=== PATIENT | male | born 1980 | race Caucasian/White ===

== ENCOUNTER → 2017-07-24 | Outpatient (CLI) | payer BC | END | disposition home or self-care (01) | LOC: C.LAB 10:13 | PROVIDERS: ATTEND Family Medicine | DX: Z83.2 Family history of diseases of the blood and blood-forming organs and certain disorders involving the immune mechanism (principal) ==

== ENCOUNTER → 2017-10-02 | Outpatient (CLI) | payer OTHER ==
--- NOTE | 2017-10-02 10:24 | DIAGNOSTIC IMAGING REPORT ---
ULTRASOUND TESTES AND SCROTUM CLINICAL HISTORY: Chronic right testicular pain. Penile lesion. COMPARISON STUDY: No priors. TECHNIQUE: Real-time, grayscale, and color Doppler sonography of the testes and scrotum is performed. Images are reviewed in the transverse and longitudinal planes. FINDINGS: The testes are normal in size and homogeneous in echotexture. The right testis measures 6.2 x 2.8 x 3.4 cm and the left testis measures 5.6 x 2.4 x 3.6 cm. No intratesticular mass is seen. Testicular blood flow is normal and symmetric. Normal Doppler waveforms are identified in both testes. The epididymal heads are normal in appearance. The right epididymal head measures 1.3 cm in length and the left epididymal head measures 1.1 cm in length. No varicocele or hydrocele is seen. IMPRESSION: Unremarkable sonographic assessment of the testes and scrotum. Electronically signed by: Leonard Singh M.D. 10/02/2017 10:23 AM Dictated Date/Time: 10/02/2017 10:22 AM
== END | disposition home or self-care (01) ==
LOC: C.ULTRBC 09:45
PROVIDERS: ATTEND Urology
DX: N48.9 Disorder of penis, unspecified (principal)

== ENCOUNTER 2023-01-21 15:20 | Observation (INO) ==
--- NOTE | 2023-01-21 15:24 | ED Triage Note ---
Date of Service January 21, 2023 History of Present Illness This patient was briefly evaluated while in triage. An abbreviated physical exam was performed. This patient is a 42-year-old Male who presents to the ED for evaluation of RLQ abdominal pain, started around dinner last evening. Seen by Dr. Souza and had CT. sent over from CT + for appendicitis last PO 1030 Physical Exam GENERAL: NAD CARDIOVASCULAR: RRR RESPIRATORY: CTA ABDOMEN: BS x 4. TTP RLQ Initial orders for labs and / or imaging were placed and patient was placed in the waiting area until a bed is available. Please see further documentation for the full ED course.
[2023-01-21] MEDS ORDERED: cefTRIAXone SODIUM 1,000 MG in DEXTROSE 5% AD-VAN 50 ML IV STA (15:43)
[2023-01-21] MEDS ORDERED: metroNIDAZOLE 500 MG/100 ML BAG IV STA (15:43)
[2023-01-21 16:07] LABS: Basophils # (auto) 0.02 K/uL (0-0.2); Basophils % (auto) 0.4 %; Eosinophils # (auto) 0.03 K/uL (0-0.50); Eosinophils % (auto) 0.6 %; Hematocrit (blood only) 45.6 % (42.0-52.0); Hemoglobin 16.5 g/dl (14.0-18.0); Immature Granulocytes # (auto) 0.02 K/uL (0.01-0.20); Immature Granulocytes % (auto) 0.4 %; Lymphocytes # (auto) 1.04 K/uL (1.2-3.4); Lymphocytes % (auto) 19.3 %; Mean Corpuscular Hgb Conc 36.2 g/dL (32.0-36.0); Mean Corpuscular Volume 85.7 fL (80.0-100.0); Mean Platelet Volume 10.9 fL (9.4-12.4); Monocytes # (auto) 0.35 K/uL (0.11-0.59); Monocytes % (auto) 6.5 %; Neutrophils # (auto) 3.94 K/uL (1.40-6.50); Neutrophils % (auto) 72.8 %; Platelet Count 210 K/uL (130-400); RDW Coefficient of Variation 12.1 % (11.5-14.5); RDW Standard Deviation 37.8 fL (36.4-46.3); Red Blood Count 5.32 M/uL (4.70-6.10)
--- NOTE | 2023-01-21 16:17 | Emergency Department Note ---
History of Present Illness General Chief Complaint: Flank Pain Stated Complaint: APENDICITIS Time Seen by Provider: 01/21/23 15:42 History of Present Illness Provider Complaint: abdominal pain Onset (ago): 1 day(s) Pain Consistency: intermittent Location: RLQ Severity: mild Maximum Pain Intensity: 2 Current Pain Intensity: 2 Quality: + stabbing and + sharp Relieved By: + nothing Exacerbated By: + nothing Context: no foreign travel, no possible food poisoning, no sick contacts, no recent antibiotic use, no recent surgery/procedure or no recent injury Associated Symptoms: no nausea, no vomiting, no diarrhea, no fever, no chills, no constipation, no dysuria, no hematemesis, no hematochezia, no melena and no hematuria Home Medications Medication Instructions Recorded Confirmed Type esomeprazole magnesium 20 mg 20 mg PO DAILY 07/28/19 01/21/23 History capsule,delayed release (Nexium) loratadine 10 mg tablet (Claritin) 10 mg PO DAILY 07/28/19 01/21/23 History albuterol sulfate 90 mcg/actuation 1 inh inhalation QID PRN Wheezing 10/14/22 01/21/23 History aerosol inhaler multivitamin 1 tab PO DAILY 01/21/23 01/21/23 History Allergies Allergy/AdvReac Type Severity Reaction Status Date / Time promethazine Allergy Intermediate hives Verified 01/21/23 16:55 Sulfa (Sulfonamide Allergy Intermediate hives Verified 01/21/23 16:55 Antibiotics) Past Med/Surg History Medical History Acquired von Willebrand's disease Type 1 Anal fissure Asthma Environmental allergies Epididymitis GERD (gastroesophageal reflux disease) History of COVID-19 08/26/2022 (home test)- fever, chills, body aches, sinus pressure > resolved except occasional mild cough Palpitations occasional (following 2nd Covid vaccine) SLAP tear of shoulder Right Surgical History Anal skin tag excised [place] teeth extracted Family History Father Diabetes Hypertension Heart disease Mother Breast cancer Social History Smoking Status: Never smoker Second Hand Exposure: No; Do You Dip or Chew Tobacco: No; Hx Alcohol Use: Yes Alcohol type: beer, wine and hard liquor Hx Substance Use: No Preferred Language: Belarusian Communication Ability: Effective Corking Machine Operator Required: No Beliefs That Will Affect Care: None marital status: Current Living Situation: Spouse and Family 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 Safe at Home: Yes Assistive Devices: Glasses Physical Exam Vital Signs: Vital Signs - 24 hr 01/21/23 15:23 01/21/23 16:39 01/21/23 16:40 Temperature 36.5 C Temperature Source Temporal Artery Sc an Pulse Rate 90 63 66 Respiratory Rate 20 13 15 Respiratory Effort / Characteristics Non-Labored Respiratory Depth Normal Blood Pressure 156/109 H Blood Pressure Sarah n 124 Pulse Oximetry 99 Oxygen Delivery Me thod Room Air Sepsis Recent Feve r Within 48 Hours No Sepsis New/Unexpla ined Change in Men diaz Status N/A Sepsis Action Take n by Nursing No Action Required 01/21/23 16:38 01/21/23 16:50 01/21/23 17:00 Temperature Temperature Source Pulse Rate 68 62 Respiratory Rate 13 Respiratory Effort / Characteristics Respiratory Depth Blood Pressure 152/96 H Blood Pressure Sarah n 114 Pulse Oximetry Oxygen Delivery Me thod Sepsis Recent Feve r Within 48 Hours Sepsis New/Unexpla ined Change in Men diaz Status Sepsis Action Take n by Nursing 01/21/23 17:00 01/21/23 17:10 01/21/23 17:20 Temperature Temperature Source Pulse Rate 68 68 62 Respiratory Rate 21 17 13 Respiratory Effort / Characteristics Respiratory Depth Blood Pressure Blood Pressure Sarah n Pulse Oximetry Oxygen Delivery Me thod Sepsis Recent Feve r Within 48 Hours Sepsis New/Unexpla ined Change in Men diaz Status Sepsis Action Take n by Nursing 01/21/23 17:30 01/21/23 17:30 01/21/23 17:40 Temperature Temperature Source Pulse Rate 55 L 62 Respiratory Rate 15 17 Respiratory Effort / Characteristics Respiratory Depth Blood Pressure 133/94 Blood Pressure Sarah n 107 Pulse Oximetry Oxygen Delivery Me thod Sepsis Recent Feve r Within 48 Hours Sepsis New/Unexpla ined Change in Men diaz Status Sepsis Action Take n by Nursing Physical Exam: Physical Exam GENERAL: oriented to person, place, and time. appears well-developed and well- nourished. HENT: Exam performed. - Head: Normocephalic and atraumatic. EYES: Conjunctivae and EOM are normal. Right eye exhibits no discharge. Left eye exhibits no discharge. No scleral icterus. NECK: Normal range of motion. Neck supple. No JVD present. CV: Normal rate, regular rhythm, normal heart sounds and intact distal pulses. There is no peripheral edema. Palpable radial pulses bue. PULM/CHEST: Effort normal and breath sounds normal. No respiratory distress. No stridor. no wheezes. no rales. ABD: The abdomen is soft. There is tenderness to palpation of the right lower quadrant with rebound tenderness. Rovsing negative. NEURO: Motor and sensation grossly intact. SKIN: Skin is warm and dry. He is not diaphoretic. PSYCH: normal mood and affect. Behavior is normal. Judgment and thought content normal. Course Course 1542: The patient was evaluated in room A12. A complete history and physical exam was performed Cardiac monitoring: An order was placed for continuous cardiac monitoring. The monitor shows a rate of 90 with sinus rhythm interpreted by me 1624: Spoke with Dr. Dominguez general surgery who states he will be down to eval uate the patient. He recommends we spoke with Dr. Villalpando about given the patient desmopressin. 1643: I contacted Dr. Villalpando who recommended the following: Dr. Dominguez surgery will be made aware 20 mcg IV 90- minutes prior to surgery - check BMP, BP, PTT 30-45 minutes later and make sure PTT normalizes to indicate good response Repeat 20 mcg at 12 hours then 20 mcg daily up to 3 days (we can follow for subsequent doses) Contact us if there is any concerns over unusual bleeding postoperatively in which case we will reassess for Humate-P Dr. Dominguez surgery will be made aware Administered Medications Discontinued Medications Ceftriaxone Sodium 1,000 mg/ (Dextrose) 50 mls @ 100 mls/hr IV NOW STA Stop: 01/21/23 16:12 Last Infusion: 01/21/23 17:35 Dose: 0 mls/hr Documented By: Admin: 01/21/23 17:00 Dose: 100 mls/hr Documented By: RANULFO Metronidazole (Flagyl) 500 mg in 100 mls @ 100 mls/hr IV NOW STA Stop: 01/21/23 16:42 Last Infusion: 01/21/23 17:35 Dose: 0 mls/hr Documented By: Admin: 01/21/23 16:08 Dose: 100 mls/hr Documented By: RANULFO Medical Decision Making Medical Records Attestation: I reviewed the patient's medical records. External medical records reviewed. CT of the abdomen pelvis conducted outpatient today showed that the appendix borderline distended 7 mm with periappendiceal fat stranding concerning for early acute appendicitis. Laboratory Data Attestation: I reviewed the patient's lab results. 01/21/23 15:50 01/21/23 15:50 Lab Results 01/21/23 01/21/23 01/21/23 Range/Units 15:50 15:50 15:50 WBC 5.40 (4.8-10.8) K/ul RBC 5.32 (4.70-6.10) M/uL Hgb 16.5 (14.0-18.0) g/dl Hct 45.6 (42.0-52.0) % MCV 85.7 (80.0-100.0) fL MCH 31.0 (25.0-34.0) pg MCHC 36.2 H (32.0-36.0) g/dL RDW Std Deviation 37.8 (36.4-46.3) fL RDW Coeff of Erickson 12.1 (11.5-14.5) % Plt Count 210 (130-400) K/uL MPV 10.9 (9.4-12.4) fL Immature Gran % (Auto) 0.4 % Neut % (Auto) 72.8 % Lymph % (Auto) 19.3 % Callaway % (Auto) 6.5 % Eos % (Auto) 0.6 % Baso % (Auto) 0.4 % Neut # (Auto) 3.94 (1.40-6.50) K/uL Lymph # (Auto) 1.04 L (1.2-3.4) K/uL [place] # (Auto) 0.35 (0.11-0.59) K/uL Eos # (Auto) 0.03 (0-0.50) K/uL Baso # (Auto) 0.02 (0-0.2) K/uL Immature Gran # (Auto) 0.02 (0.01-0.20) K/uL PT 11.2 (9.0-12.0) Seconds INR 1.0 (0.9-1.1) Sodium 136 (136-145) mmol/L Potassium 3.8 (3.5-5.1) mmol/L Chloride 102 (98-107) mmol/L Carbon Dioxide 25 (21-32) mmol/L Anion Gap 9 (3-11) BUN 11 (6-23) mg/dl Creatinine 1.02 (0.6-1.4) mg/dl Est Cr Clr Drug Dosing 100.5 ml/min Est GFR ( Amer) 104.6 ml/min Est GFR (Non-Af Amer) 90.2 ml/min BUN/Creatinine Ratio 10.8 (10-20) Glucose 121 H (70-99(Fasting)) mg/dl Calcium 10.2 (8.6-10.3) mg/dl Total Bilirubin 0.8 (0.2-1.0) mg/dl AST 24 (13-39) U/L ALT 42 (7-52) U/L Alkaline Phosphatase 58 (34-104) U/L Total Protein 8.1 (6.0-8.3) gm/dl Albumin 4.8 (3.4-5.0) gm/dl Globulin 3.3 (2.5-4.0) gm/dl Albumin/Globulin Ratio 1.5 (0.9-2) SARS-CoV-2, RNA, NAAT (NEGATIVE) 01/21/23 Range/Units 15:55 WBC (4.8-10.8) K/ul RBC (4.70-6.10) M/uL Hgb (14.0-18.0) g/dl Hct (42.0-52.0) % MCV (80.0-100.0) fL MCH (25.0-34.0) pg MCHC (32.0-36.0) g/dL RDW Std Deviation (36.4-46.3) fL RDW Coeff of Erickson (11.5-14.5) % Plt Count (130-400) K/uL MPV (9.4-12.4) fL Immature Gran % (Auto) % Neut % (Auto) % Lymph % (Auto) % Call[place] % (Auto) % Eos % (Auto) % Baso % (Auto) % Neut # (Auto) (1.40-6.50) K/uL Lymph # (Auto) (1.2-3.4) K/uL [place] # (Auto) (0.11-0.59) K/uL Eos # (Auto) (0-0.50) K/uL Baso # (Auto) (0-0.2) K/uL Immature Gran # (Auto) (0.01-0.20) K/uL PT (9.0-12.0) Seconds INR (0.9-1.1) Sodium (136-145) mmol/L Potassium (3.5-5.1) mmol/L Chloride (98-107) mmol/L Carbon Dioxide (21-32) mmol/L Anion Gap (3-11) BUN (6-23) mg/dl Creatinine (0.6-1.4) mg/dl Est Cr Clr Drug Dosing ml/min Est GFR ( Amer) ml/min Est GFR (Non-Af Amer) ml/min BUN/Creatinine Ratio (10-20) Glucose (70-99(Fasting)) mg/dl Calcium (8.6-10.3) mg/dl Total Bilirubin (0.2-1.0) mg/dl AST (13-39) U/L ALT (7-52) U/L Alkaline Phosphatase (34-104) U/L Total Protein (6.0-8.3) gm/dl Albumin (3.4-5.0) gm/dl Globulin (2.5-4.0) gm/dl Albumin/Globulin Ratio (0.9-2) SARS-CoV-2, RNA, NAAT NEGATIVE (NEGATIVE) [facility] Narrative 1542: The patient was evaluated in room A12. A complete history and physical exam was performed Cardiac monitoring: An order was placed for continuous cardiac monitoring. The monitor shows a rate of 90 with sinus rhythm interpreted by me 1624: Spoke with Dr. Dominguez general surgery who states he will be down to evaluate the patient. He recommends we spoke with Dr. Villalpando about given the pa tient desmopressin. 1643: I contacted Dr. Villalpando who recommended the following: Dr. Dominguez surgery will be made aware 20 mcg IV 90- minutes prior to surgery - check BMP, BP, PTT 30-45 minutes later and make sure PTT normalizes to indicate good response Repeat 20 mcg at 12 hours then 20 mcg daily up to 3 days (we can follow for subsequent doses) Contact us if there is any concerns over unusual bleeding postoperatively in which case we will reassess for Marvin Dominguez surgery will be made aware Impression & Plan Acute appendicitis Discharge Plan Visit Data Chief Complaint: Flank Pain Stated Complaint: APENDICITIS ED Provider: Bernard Snider Discharge Problem: Acute appendicitis Patient Disposition: Admitted As Inpatient Forms Stand Alone Forms: [facility] Prescriptions Prescriptions: No Action esomeprazole magnesium [Nexium] 20 mg capsule,delayed release(DR/EC) 20 mg PO DAILY loratadine [Claritin] 10 mg tablet 10 mg PO DAILY multivitamin Tablet 1 tab PO DAILY albuterol sulfate 90 mcg/actuation Hfa Aerosol Inhaler 1 inh INHALATION QID PRN (Reason: Wheezing) Referrals Referrals: Pedro Souza [Primary Care Provider] -
[2023-01-21 16:18] LABS: Prothrombin Time 11.2 Seconds (9.0-12.0)
[2023-01-21 16:21] LABS: Albumin Level 4.8 gm/dl (3.4-5.0); Bilirubin,Total 0.8 mg/dl (0.2-1.0); Calcium 10.2 mg/dl (8.6-10.3); Potassium 3.8 mmol/L (3.5-5.1)
[2023-01-21 16:27] LABS: Albumin Globulin Ratio 1.5 (0.9-2); BUN Creatinine Ratio 10.8 (10-20); Creatinine Clr Calc Pharmacy 100.5 ml/min; Est GFR (African American) 104.6 ml/min; Est GFR (Non-African American) 90.2 ml/min; Globulin 3.3 gm/dl (2.5-4.0); Total Protein 8.1 gm/dl (6.0-8.3)
--- NOTE | 2023-01-21 17:34 | History & Physical Report ---
Date of Service January 21, 2023 Assessment & Plan (1) Acute appendicitis: (2) Von willebrand disease, type 1: Plan 42 yo male with onset of sharp abdominal pain in RLQ last evening with generalized lower abdominal tenderness, CT scan showing early acute appendicitis with no evidence of perforation or abscess. NO leukocytosis, afebrile and no chills. Has history of type 1 von willebrand disease. Plan: Dr. Dominguez and I discussed with patient imaging and laboratory findings consi stent with early acute appendicitis. Given no leukocytosis, fever, or chills and the Von Willebrand's disease discussed options of antibiotics and medical management vs surgery with laparoscopic appendectomy. Discussed procedure and associated risks and expected recovery. Dr. Snider in ER briefly discussed with Dr. Ennis and there is indicated protocol preoperatively for the von Willebrand's which would involve premedication 90 minutes before surgery and rechecking labs including PTT. After discussion and examination, will plan for observation and antibiotics and repeat labs in morning. Will determine if surgery needed in morning. Will consult Dr. Loli Dominguez has seen and examined pt, please see addendum for further recommendations/plan. History of Present Illness Chief Complaint: Right lower abdominal pain Primary Care Provider: Pedro Lee Libby Stephen is a 42 year-old male who presented to emergency department from outpatient PCP office due to sudden onset of RLQ abdominal pain last evening around 5:30 pm with associated gas and bloating. States he had sudden sharp pain in RLQ and then dull aching pain in lower abdomen bilaterally. Jackson constipated last evening and this morning. Denies of similar sharp severe pain in past. Denies fever or chills. Had outpatient CT scan with contrast which showed early acute appendicitis. States he is feeling well and pain is minimal and only about 2/10. Has not taken any pain medication. Has history of Type 1 Von Willebrand disease. Follows with Dr. Ennis. Had vasectomy about 2 months ago without significant bleeding issues. Was premedicated with desmopressin 2 days prior to procedure. Allergies Allergy/AdvReac Type Severity Reaction Status Date / Time promethazine Allergy Intermediate hives Verified 01/21/23 16:55 Sulfa (Sulfonamide Allergy Intermediate hives Verified 01/21/23 16:55 Antibiotics) Home Medications Medication Instructions Recorded Confirmed Type esomeprazole magnesium 20 mg 20 mg PO DAILY 07/28/19 01/21/23 History capsule,delayed release (Nexium) loratadine 10 mg tablet (Claritin) 10 mg PO DAILY 07/28/19 01/21/23 History albuterol sulfate 90 mcg/actuation 1 inh inhalation QID PRN Wheezing 10/14/22 01/21/23 History aerosol inhaler multivitamin 1 tab PO DAILY 01/21/23 01/21/23 History Past Med/Surg History Medical History Acquired von Willebrand's disease Type 1 Anal fissure Asthma Environmental allergies Epididymitis GERD (gastroesophageal reflux disease) History of COVID-19 08/26/2022 (home test)- fever, chills, body aches, sinus pressure > resolved except occasional mild cough Palpitations occasional (following 2nd Covid vaccine) SLAP tear of shoulder Right Surgical History Anal skin tag excised [place] teeth extracted Family History Father Diabetes Hypertension Heart disease Mother Breast cancer Social History Smoking Status: Former smoker Second Hand Exposure: No; Do You Dip or Chew Tobacco: No; Hx Alcohol Use: Yes Alcohol type: beer, wine and hard liquor Hx Substance Use: No Preferred Language: Jamaican Communication Ability: Effective Spring Assembler Required: No Beliefs That Will Affect Care: None marital status: Current Living Situation: Spouse Current Living Situation Comment: Lives at home with and children 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 Safe at Home: Yes Safety Concerns: Feels Safe At This Time Assistive Devices: Glasses Review of Systems Review of Systems: All systems reviewed & are unremarkable except as noted in HPI & below Physical Exam Constitutional: WD/WN, vitals as above cooperative and comfortable; no acute distress and not ill appearing Respiratory: normal respiratory effort, lungs clear to auscultation Cardiovascular: RRR, no murmur, no edema Gastrointestinal (Abdomen): Inspection/Auscultation: abdomen normal to inspection and + hypoactive bowel sounds; abdomen not distended, + abnormal bowel sounds and no abdominal surgical scar Percussion/Palpation: + abdomen tender (Right mid lateral abdomen on deep palpation) and abdomen soft; no guarding and abdomen not rigid negative McBurney point Skin: no rashes, warm and dry Psychiatric: A+Ox3, euthymic affect Results & Data Results & Data Vital Signs (Past 12 Hours) Vital Signs Temp Pulse Resp BP Pulse Ox O2 Del Method 01/21/23 16:38 68 01/21/23 16:40 66 15 01/21/23 16:39 63 13 01/21/23 15:23 36.5 C 90 20 156/109 H 99 Room Air Laboratory Results 01/21/23 01/21/23 01/21/23 Range/Units 15:55 15:50 15:50 WBC (4.8-10.8) K/ul RBC (4.70-6.10) M/uL Hgb (14.0-18.0) g/dl Hct (42.0-52.0) % MCV (80.0-100.0) fL MCH (25.0-34.0) pg MCHC (32.0-36.0) g/dL RDW Std Deviation (36.4-46.3) fL RDW Coeff of Erickson (11.5-14.5) % Plt Count (130-400) K/uL MPV (9.4-12.4) fL Immature Gran % (Auto) % Neut % (Auto) % Lymph % (Auto) % [place]monson % (Auto) % Eos % (Auto) % Baso % (Auto) % Neut # (Auto) (1.40-6.50) K/uL Lymph # (Auto) (1.2-3.4) K/uL [place]monson # (Auto) (0.11-0.59) K/uL Eos # (Auto) (0-0.50) K/uL Baso # (Auto) (0-0.2) K/uL Immature Gran # (Auto) (0.01-0.20) K/uL PT 11.2 (9.0-12.0) Seconds INR 1.0 (0.9-1.1) Sodium 136 (136-145) mmol/L Potassium 3.8 (3.5-5.1) mmol/L Chloride 102 (98-107) mmol/L Carbon Dioxide 25 (21-32) mmol/L Anion Gap 9 (3-11) BUN 11 (6-23) mg/dl Creatinine 1.02 (0.6-1.4) mg/dl Est Cr Clr Drug Dosing 100.5 ml/min Est GFR ( Amer) 104.6 ml/min Est GFR (Non-Af Amer) 90.2 ml/min BUN/Creatinine Ratio 10.8 (10-20) Glucose 121 H (70-99(Fasting)) mg/dl Calcium 10.2 (8.6-10.3) mg/dl Total Bilirubin 0.8 (0.2-1.0) mg/dl AST 24 (13-39) U/L ALT 42 (7-52) U/L Alkaline Phosphatase 58 (34-104) U/L Total Protein 8.1 (6.0-8.3) gm/dl Albumin 4.8 (3.4-5.0) gm/dl Globulin 3.3 (2.5-4.0) gm/dl Albumin/Globulin Ratio 1.5 (0.9-2) SARS-CoV-2, RNA, NAAT NEGATIVE (NEGATIVE) 01/21/23 Range/Units 15:50 WBC 5.40 (4.8-10.8) K/ul RBC 5.32 (4.70-6.10) M/uL Hgb 16.5 (14.0-18.0) g/dl Hct 45.6 (42.0-52.0) % MCV 85.7 (80.0-100.0) fL MCH 31.0 (25.0-34.0) pg MCHC 36.2 H (32.0-36.0) g/dL RDW Std Deviation 37.8 (36.4-46.3) fL RDW Coeff of Erickson 12.1 (11.5-14.5) % Plt Count 210 (130-400) K/uL MPV 10.9 (9.4-12.4) fL Immature Gran % (Auto) 0.4 % Neut % (Auto) 72.8 % Lymph % (Auto) 19.3 % Edmonson % (Auto) 6.5 % Eos % (Auto) 0.6 % Baso % (Auto) 0.4 % Neut # (Auto) 3.94 (1.40-6.50) K/uL Lymph # (Auto) 1.04 L (1.2-3.4) K/uL Edmonson # (Auto) 0.35 (0.11-0.59) K/uL Eos # (Auto) 0.03 (0-0.50) K/uL Baso # (Auto) 0.02 (0-0.2) K/uL Immature Gran # (Auto) 0.02 (0.01-0.20) K/uL PT (9.0-12.0) Seconds INR (0.9-1.1) Sodium (136-145) mmol/L Potassium (3.5-5.1) mmol/L Chloride (98-107) mmol/L Carbon Dioxide (21-32) mmol/L Anion Gap (3-11) BUN (6-23) mg/dl Creatinine (0.6-1.4) mg/dl Est Cr Clr Drug Dosing ml/min Est GFR ( Amer) ml/min Est GFR (Non-Af Amer) ml/min BUN/Creatinine Ratio (10-20) Glucose (70-99(Fasting)) mg/dl Calcium (8.6-10.3) mg/dl Total Bilirubin (0.2-1.0) mg/dl AST (13-39) U/L ALT (7-52) U/L Alkaline Phosphatase (34-104) U/L Total Protein (6.0-8.3) gm/dl Albumin (3.4-5.0) gm/dl Globulin (2.5-4.0) gm/dl Albumin/Globulin Ratio (0.9-2) SARS-CoV-2, RNA, NAAT (NEGATIVE) Diagnostic Findings ABDOMEN AND PELVIS CT WITH IV AND ORAL CONTRAST CT DOSE: 1090.72 mGy.cm HISTORY: R/O APPY,RLQ PAIN TECHNIQUE: Multiaxial CT images of the abdomen and pelvis were performed following the use of intravenous and oral contrast. A dose lowering technique was utilized adhering to the principles of ALARA. COMPARISON STUDY: None. FINDINGS: The appendix is borderline distended at 7 mm. However, there is minimal periappendiceal fat stranding. Therefore, these findings are concerning for an early acute appendicitis. No perforation or abscess identified. The lung bases are clear. No pneumoperitoneum. No pneumatosis. No acute fractures identified. The liver, gallbladder, spleen, pancreas, adrenal glands, and kidneys are unremarkable. No ureteral stones or hydronephrosis. The main portal vein is patent. Normal caliber abdominal aorta. No retroperitoneal or pelvic lymphadenopathy. No pelvic free fluid. Normal bladder. No dilated loops of bowel to suggest an obstruction. There are few colonic diverticula. No evidence for acute diverticulitis. IMPRESSION: The appendix is borderline distended at 7 mm. However, there is minimal periappendiceal fat stranding. Therefore, these findings are concerning for an early acute appendicitis. Surgical consultation recommended. Code Status & VTE Plan VTE Prophylaxis Plan VTE Prophylaxis will be ordered: Yes Supervising Physician Co-Signing Physician Notes I have seen and examined the patient personally and agree with the above assessment plan. We long discussion concerning the appendicitis as well as his von Willebrand's disease. I carefully detailed the options of antibiotic therapy versus surgical treatment of the appendicitis. Given his white count, lack of fever, lack of inflammatory changes of the appendix, he meets criteria for antibiotic treatment as primary treatment for appendicitis. We will place him in the hospital on antibiotics and revisit the plan in the morning. We will reach out to Dr. Villalpando for guidance on infusion therapy if he does choose to undergo surgery.
[2023-01-21] MEDS ORDERED: ALBUTEROL HFA 8 GM INHALER INH PRN (20:24)
[2023-01-21] MEDS ORDERED: PROMETHAZINE HCL 12.5 MG in SODIUM CHLORIDE 0.9% 50 ML IV PRN (20:24)
[2023-01-21] MEDS ORDERED: ONDANSETRON INJ 2 MG/ML 2 ML VIAL IV PRN (20:24)
[2023-01-21] MEDS ORDERED: MoRPHine SULFATE 2 MG/ML CARP IV PRN (20:24)
[2023-01-21] MEDS ORDERED: diphenhydrAMINE Capsule 25 MG CAP PO PRN (20:24)
[2023-01-21] MEDS ORDERED: KETOROLAC 30 MG/ML VIAL IV PRN (20:24)
[2023-01-21] MEDS ORDERED: PIPERACILLIN/TAZOBACTAM 4.5 GM/120 ML BAG IV ONE (21:00)
[2023-01-21] MEDS: LACTATED RINGER'S 1,000 ML IV SCH (21:48)
[2023-01-22] MEDS: PIPERACILLIN/TAZOBACTAM 4.5 GM in DEXTROSE 5% 100 ML IV SCH ×3 (01:06→18:16)
[2023-01-22 01:35] LABS: Appearance Urine Clear (Clear); Bacteria Urine Automated Negative (Negative); Bilirubin Urine Negative (Negative); Blood Urine Negative (Negative); Cast Urine Automated 0 /lpf (0-5); Color Urine Dark Yellow; Epithelial Cell Urine Auto 0-5 /lpf (0-5); Glucose Urine UA Negative (Negative); Ketones Urine Trace (Negative); Leukocyte Esterase Urine Negative (Negative); Nitrite Urine Negative (Negative); Protein Urine Trace (Negative); RBC Urine Automated 0-4 /hpf (0-4); Specific Gravity Urine > 1.045 (1.000-1.030); Urobilinogen Urine Negative (Negative); WBC Urine Automated 0 /hpf (0-5)
--- NOTE | 2023-01-22 06:17 | Consultation ---
Date of Consultation January 22, 2023 Assessment & Plan (1) Von willebrand disease, type 1: With baseline von Willebrand's factors above 30%, he actually has a more "mild" variant but for optimal safety for intra-abdominal surgery we should probably use von Willebrand factor concentrates rather than DDAVP with the latter less predictable in its effect and also complicating issues of blood pressure and electrolyte management. If he is to go to surgery, would >> Administer Humate-P 3600 ristocetin cofactor units (40 units/kg) intravenously approximately 60 to 90 minutes preoperatively. Would need to draw "peak" Factor VIII and von Willebrand's factor antigen levels as well as a STAT PTT 30 minutes after the infusion. The first 2 results will not be immediately available but the PTT should be normal before proceeding to surgery. >> Postoperatively would recheck "trough" PTT, factor VIII and von Willebrand factor antigen levels 11 hours post the first infusion >> Continue with a dose of 1800 units at 12 hours post the first infusion then another 1800 unit dose 12 hours after that up until 36 hours post-op potentially converting to every 24 hours thereafter depending on peak and trough levels >> Continue Humate-P for at least 4 days then reassess, could potentially convert to DDAVP thereafter to facilitate discharge but that will need to be in shared decision-making with the patient. We are not necessarily well structured to be able to give Humate-P as an outpatient but we can explore. Classic recommendation would be for 7 days of coverage for "major surgery" With each day of continued Humate-P administration would need to draw "trough" levels 30 to 60 minutes prior to then "peak" levels of von Willebrand's factor antigen, factor VIII, and PTT 30 minutes after the morning infusion. 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 To lessen thrombosis risk would try to keep peak levels below 180-200 Ironically, there is the issue of thrombosis risk. Dania " evidencebased many review: Perioperative management of the VWD patient at elevated thrombotic risk" Hematology Am Soc Hematol Educ Program. https://www.ncbi.nlm.nih.gov/pmc/articles/FET2693705/# 2018Jul 29 2019(1): 484092. doi:10.1182/hematology.[id number] htt ps://doi.org/10.1182%2Fhematology.4744209579 review that issue and conclude that standard antithrombotic prophylaxis is worthwhile in the high risk patient. Would certainly continue with early ambulation and mechanical DVT prophylaxis. If it is felt that the surgical situation warrants pharmacologic prophylaxis so long as he is on the Humate-P and hospitalized could consider standard p rophylaxis but might use prophylactic dose subcutaneous heparin for facilitated reversal if necessary (2) Acute appendicitis: As per surgery Plan 1. Would use Humate-P for the immediate management perioperatively with dosing and lab monitoring as detailed above 2. Early ambulation and mechanical DVT prophylaxis would be critical. If you feel that there is a significant benefit to low-dose pharmacologic heparin prophylaxis for a "standard" patient in this circumstance would incorporate that here so long as he is on therapeutic Humate-P though do so with very close observation for any signs of bleeding 3. We will need to continue Humate-P and laboratory monitoring for 4 days as above, thereafter can have shared decision-making with the patient about converting to DDAVP History of Present Illness Reason for Consultation: Patient with history of symptomatic type I von Willebrand's disease admitted with early appendicitis with concerns over possible need for perioperative management of his hemostasis Attending Physician: Andres Dominguez MD History of Present Illness Patient with type I von Willebrand's disease, baseline von Willebrand factor activity 32%, von Willebrand factor antigen 36% but with normal factor VIII activity at 94%. He has never had life-threatening bleeding and is usually managed reasonably well with DDAVP. He presents now with low right flank pain and signs of a early acute appendicitis. He has had no recent major bleeding issues and is not having any other major complications with this. No other major medical issues complicating his presentation. We do note there is a family history of von Willebrand's and his mother Allergies Allergy/AdvReac Type Severity Reaction Status Date / Time promethazine Allergy Intermediate hives Verified 01/21/23 16:55 Sulfa (Sulfonamide Allergy Intermediate hives Verified 01/21/23 16:55 Antibiotics) Home Medications Medication Instructions Recorded Confirmed Type esomeprazole magnesium 20 mg 20 mg PO DAILY 07/28/19 01/21/23 History capsule,delayed release (Nexium) loratadine 10 mg tablet (Claritin) 10 mg PO DAILY 07/28/19 01/21/23 History albuterol sulfate 90 mcg/actuation 1 inh inhalation QID PRN Wheezing 10/14/22 01/21/23 History aerosol inhaler multivitamin 1 tab PO DAILY 01/21/23 01/21/23 History Patient History Medical History Acquired von Willebrand's disease Type 1 Anal fissure Asthma Environmental allergies Epididymitis GERD (gastroesophageal reflux disease) History of COVID-19 08/26/2022 (home test)- fever, chills, body aches, sinus pressure > resolved except occasional mild cough Palpitations occasional (following 2nd Covid vaccine) SLAP tear of shoulder Right Surgical History Anal skin tag excised [place] teeth extracted Family History Father Diabetes Hypertension Heart disease Mother Breast cancer Social History Smoking Status: Former smoker Second Hand Exposure: No; Do You Dip or Chew Tobacco: No; Hx Alcohol Use: Yes Alcohol type: beer, wine and hard liquor Hx Substance Use: No Preferred Language: Kazakh Communication Ability: Effective 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 He has no scleral or skin icterus. No peripheral pathologic adenopathy. Lungs are clear, cardiac exam exam is stable. His abdomen is soft and he does not have dramatic tenderness with no rigidity or guarding in the right lower quadrant. There is more vague tenderness in the lower right flank but this is not dramatic Extremities are symmetric without compression tenderness or signs of DVT Results & Data Vital Signs (Past 12 Hours) Vital Signs Temp Pulse Pulse Resp BP BP Pulse Ox 01/21/23 20:46 36.7 C 62 16 134/87 100 01/21/23 20:30 68 23 136/87 05/31/23 20:00 52 L 16 137/85 100 01/21/23 19:30 57 L 20 144/86 H 99 01/21/23 19:00 51 L 19 130/87 01/21/23 18:46 59 L 19 125/85 01/21/23 18:40 58 L 27 H 01/21/23 18:30 51 L 17 01/21/23 18:20 51 L 20 O2 Del Method 01/21/23 20:46 Room Air 01/21/23 20:30 01/21/23 20:00 01/21/23 19:30 01/21/23 19:00 01/21/23 18:46 01/21/23 18:40 01/21/23 18:30 01/21/23 18:20 Laboratory Results Laboratory Results - last 24 hr 01/21/23 01/21/23 01/21/23 15:50 15:50 15:50 WBC 5.40 RBC 5.32 Hgb 16.5 Hct 45.6 MCV 85.7 MCH 31.0 MCHC 36.2 H RDW Std Deviation 37.8 RDW Coeff of Erickson 12.1 Plt Count 210 MPV 10.9 Immature Gran % (Auto) 0.4 Neut % (Auto) 72.8 Lymph % (Auto) 19.3 [place] % (Auto) 6.5 Eos % (Auto) 0.6 Baso % (Auto) 0.4 Neut # (Auto) 3.94 Lymph # (Auto) 1.04 L [place] # (Auto) 0.35 Eos # (Auto) 0.03 Baso # (Auto) 0.02 Immature Gran # (Auto) 0.02 PT 11.2 INR 1.0 Sodium 136 Potassium 3.8 Chloride 102 Carbon Dioxide 25 Anion Gap 9 BUN 11 Creatinine 1.02 Est Cr Clr Drug Dosing 100.5 Est GFR ( Amer) 104.6 Est GFR (Non-Af Amer) 90.2 BUN/Creatinine Ratio 10.8 Glucose 121 H Calcium 10.2 Total Bilirubin 0.8 AST 24 ALT 42 Alkaline Phosphatase 58 Total Protein 8.1 Albumin 4.8 Globulin 3.3 Albumin/Globulin Ratio 1.5 Urine Color Urine Appearance Urine pH Ur Specific [place] Urine Protein Urine Glucose (UA) Urine Ketones Urine Blood Urine Nitrite Urine Bilirubin Urine Urobilinogen Ur Leukocyte Esterase Urine WBC (Auto) Urine RBC (Auto) U Hyaline Cast (Auto) U Epithel Cells (Auto) Urine Bacteria (Auto) SARS-CoV-2, RNA, NAAT 01/21/23 01/22/23 15:55 01:10 WBC RBC Hgb Hct MCV MCH MCHC RDW Std Deviation RDW Coeff of Erickson Plt Count MPV Immature Gran % (Auto) Neut % (Auto) Lymph % (Auto) [place] % (Auto) Eos % (Auto) Baso % (Auto) Neut # (Auto) Lymph # (Auto) [place] # (Auto) Eos # (Auto) Baso # (Auto) Immature Gran # (Auto) PT INR Sodium Potassium Chloride Carbon Dioxide Anion Gap BUN Creatinine Est Cr Clr Drug Dosing Est GFR ( Amer) Est GFR (Non-Af Amer) BUN/Creatinine Ratio Glucose Calcium Total Bilirubin AST ALT Alkaline Phosphatase Total Protein Albumin Globulin Albumin/Globulin Ratio Urine Color Dark Yellow Urine Appearance Clear Urine pH 7.0 Ur Specific [place] > 1.045 H Urine Protein Trace H Urine Glucose (UA) Negative Urine Ketones Trace H Urine Blood Negative Urine Nitrite Negative Urine Bilirubin Negative Urine Urobilinogen Negative Ur Leukocyte Esterase Negative Urine WBC (Auto) 0 Urine RBC (Auto) 0-4 U Hyaline Cast (Auto) 0 U Epithel Cells (Auto) 0-5 Urine Bacteria (Auto) Negative SARS-CoV-2, RNA, NAAT NEGATIVE Diagnostic Findings 01/21/[address] FINDINGS: The appendix is borderline distended at 7 mm. However, there is minimal periappendiceal fat stranding. Therefore, these findings are concerning for an early acute appendicitis. No perforation or abscess identified. The lung bases are clear. No pneumoperitoneum. No pneumatosis. No acute fractures identified. The liver, gallbladder, spleen, pancreas, adrenal glands, and kidneys are unremarkable. No ureteral stones or hydronephrosis. The main portal vein is patent. Normal caliber abdominal aorta. No retroperitoneal or pelvic lymphadenopathy. No pelvic free fluid. Normal bladder. No dilated loops of bowel to suggest an obstruction. There are few colonic diverticula. No evidence for acute diverticulitis. IMPRESSION: The appendix is borderline distended at 7 mm. However, there is minimal periappendiceal fat stranding. Therefore, these findings are concerning for an early acute appendicitis. Surgical consultation recommended. PG Care Time/CCT Total # of Minutes Spent Total Time Spent with Patient: Total time spent is greater than 50% in coordination of care (as documented) at patient's floor/unit and/or counseling patient: Coding Level of Care Code 26826 IN/OBS CONSULT LVL 4,60M Diagnoses Von willebrand disease, type 1 D68.01 Acute appendicitis K35.80 Acute appendicitis type: unspecified acute appendicitis type (2) Acute appendicitis Acute appendicitis type: unspecified acute appendicitis type Qualified Code(s): K35.80 - Unspecified acute appendicitis
--- NOTE | 2023-01-22 07:11 | Anesthesiology Consultation ---
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 Surgery Operation Date: 01/22/23 08:35 Proposed Procedures p Laparoscopic Appendectomy - Andres Dominguez MD Height/Weight Height: 5 ft 11 in Weight: 87.543 kg Allergies Allergy/AdvReac Type Severity Reaction Status Date / Time promethazine Allergy Intermediate hives Verified 01/21/23 16:55 Sulfa (Sulfonamide Allergy Intermediate hives Verified 01/21/23 16:55 Antibiotics) Medications Home Medications Medication Instructions Recorded Confirmed Last Taken esomeprazole magnesium 20 mg 20 mg PO DAILY 07/28/19 01/21/23 01/20/23 capsule,delayed release (Nexium) loratadine 10 mg tablet (Claritin) 10 mg PO DAILY 07/28/19 01/21/23 01/21/23 albuterol sulfate 90 mcg/actuation 1 inh inhalation QID PRN Wheezing 10/14/22 01/21/23 Unknown aerosol inhaler multivitamin 1 tab PO DAILY 01/21/23 01/21/23 01/21/23 Active Medications Generic Name Dose Route Start Last Admin Trade Name Freq PRN Reason Stop Dose Admin Lactated Ringer's 1,000 mls @ 75 mls/hr 01/21/23 20:24 01/21/23 21:48 Lr IV 02/20/23 20:23 75 mls/hr .[id number] DANIAL Administration Piperacillin Sod/Tazobactam 120 mls @ 30 mls/hr 01/22/23 02:00 01/22/23 05:11 Sod 4.5 gm/ Dextrose IV 02/01/23 01:59 Infused Q8H DANIAL Infusion Protocol Past Medical History Medical History Acquired von Willebrand's disease Type 1 Anal fissure Asthma Environmental allergies Epididymitis GERD (gastroesophageal reflux disease) History of COVID-19 08/26/2022 (home test)- fever, chills, body aches, sinus pressure > resolved except occasional mild cough Palpitations occasional (following 2nd Covid vaccine) SLAP tear of shoulder Right Past Family History Family History Father Diabetes Hypertension Heart disease Mother Breast cancer Past Surgical History Surgical History (Reviewed 01/22/23 @ 07:10 by AURELIO Burgess Anal skin tag excised [place] teeth extracted Social History Smoking Status: Former smoker Do You Dip or Chew Tobacco: No Hx Alcohol Use: Yes Alcohol type: beer, wine and hard liquor alcohol intake frequency: holidays/special occasions only Hx Substance Use: No substance use type: does not use Physical Exam Vital Signs Last Vital Signs Temp 98.1 F 01/21/23 20:46 Pulse 62 01/21/23 20:46 Resp 16 01/21/23 20:46 BP 134/87 01/21/23 20:46 Pulse Ox 100 01/21/23 20:46 O2 Del Method Room Air 01/21/23 20:46 Testing Laboratory Results 01/21/23 15:50 01/21/23 15:50 PT 11.2 Seconds (9.0-12.0) 01/21/23 15:50 INR 1.0 (0.9-1.1) 01/21/23 15:50 Urine Color Dark Yellow 01/22/23 01:10 Urine Appearance Clear (Clear) 01/22/23 01:10 Urine pH 7.0 (4.5-7.5) 01/22/23 01:10 Ur Specific [place] > 1.045 (1.000-1.030) H 01/22/23 01:10 Urine Protein Trace (Negative) H 01/22/23 01:10 Urine Glucose (UA) Negative (Negative) 01/22/23 01:10 Urine Ketones Trace (Negative) H 01/22/23 01:10 Urine Nitrite Negative (Negative) 01/22/23 01:10 Ur Leukocyte Esterase Negative (Negative) 01/22/23 01:10 Urine WBC (Auto) 0 /hpf (0-5) 01/22/23 01:10 Urine RBC (Auto) 0-4 /hpf (0-4) 01/22/23 01:10 U Hyaline Cast (Auto) 0 /lpf (0-5) 01/22/23 01:10 U Epithel Cells (Auto) 0-5 /lpf (0-5) 01/22/23 01:10 Urine Bacteria (Auto) Negative (Negative) 01/22/23 01:10
[2023-01-22] MEDS ORDERED: PROPOFOL IV EMULSION 10 MG/ML 20 ML VIAL IV ONE ×2 (08:37→16:20)
[2023-01-22] MEDS ORDERED: LIDOCAINE 2% 2 ML VIAL/AMP(20MG/ML) INFIL ONE (08:37)
[2023-01-22] MEDS ORDERED: fentaNYL citrate PF 100 MCG/2 ML VIAL ONE ×2 (08:37→16:04)
[2023-01-22] MEDS ORDERED: DEXAMETHASONE SOD INJ 4 MG/ML VIAL ONE (08:37)
[2023-01-22] MEDS ORDERED: MIDAZOLAM HCL 1 MG/ML 2ML VIAL ONE (08:37)
[2023-01-22] MEDS ORDERED: ONDANSETRON INJ 2 MG/ML 2 ML VIAL ONE (08:37)
[2023-01-22] MEDS ORDERED: ROCURONIUM BROMIDE 10 MG/ML 5 ML VIAL IV ONE (08:37)
[2023-01-22 08:38] LABS: Basophils # (auto) 0.03 K/uL (0-0.2); Basophils % (auto) 0.5 %; Eosinophils # (auto) 0.12 K/uL (0-0.50); Eosinophils % (auto) 1.9 %; Hematocrit (blood only) 44.8 % (42.0-52.0); Hemoglobin 15.7 g/dl (14.0-18.0); Immature Granulocytes # (auto) 0.02 K/uL (0.01-0.20); Immature Granulocytes % (auto) 0.3 %; Lymphocytes # (auto) 1.18 K/uL (1.2-3.4); Lymphocytes % (auto) 18.9 %; Mean Corpuscular Volume 88.4 fL (80.0-100.0); Mean Platelet Volume 11.2 fL (9.4-12.4); Monocytes # (auto) 0.55 K/uL (0.11-0.59); Monocytes % (auto) 8.8 %; Neutrophils # (auto) 4.34 K/uL (1.40-6.50); Neutrophils % (auto) 69.6 %; Platelet Count 190 K/uL (130-400); RDW Coefficient of Variation 12.4 % (11.5-14.5); RDW Standard Deviation 39.4 fL (36.4-46.3); Red Blood Count 5.07 M/uL (4.70-6.10); White Blood Count 6.24 K/ul (4.8-10.8)
[2023-01-22] MEDS: PANTOprazole 40 MG TAB PO SCH (09:00)
[2023-01-22] MEDS: LORATADINE 10 MG TAB PO SCH (09:00)
[2023-01-22 09:09] LABS: BUN Creatinine Ratio 10.3 (10-20); Calcium 9.3 mg/dl (8.6-10.3); Creatinine Clr Calc Pharmacy 81.3 ml/min; Est GFR (Non-African American) 69.9 ml/min; Potassium 3.6 mmol/L (3.5-5.1)
[2023-01-22] MEDS ORDERED: FACTOR 8/HUMATE-P/ADVATE ONE ×2 (10:54→13:23)
[2023-01-22] MEDS ORDERED: [UNRECOGNIZED DRUG - MIXTURE] IV SCH (11:15)
--- NOTE | 2023-01-22 11:16 | Surgery Progress Note ---
Date of Service January 22, 2023 Assessment & Plan (1) Acute appendicitis: (2) Von willebrand disease, type 1: Plan 42 yo male with onset of sharp abdominal pain in RLQ Thursday evening with generalized lower abdominal tenderness, CT scan showing early acute appendicitis with no evidence of perforation or abscess. NO leukocytosis, afebrile and no chills. Has history of type 1 von Willebrand disease. Plan: Discussed options of (1) laparoscopic appendectomy now vs (2) Antibiotic m anagement with total of 7-10 days of oral antibiotics and close follow-up vs (3) antibiotics now vs interval appendectomy. After discussion with Dr. Dominguez and the risks associated with all options he would like to proceed with laparoscopic appendectomy. will proceed with Dr. Ennis's premedication protocol keep NPO will obtain consent preoperatively Dr. Dominguez has seen and discussed above options with patient, see addendum for further recommendations/plan. Admission and Anticipated Discharge Date Admission Date: January 21, 2023 Supervising Physician Co-Signing Physician Notes I have seen and examined the patient personally and agree with the above assessment and plan. We had a long discussion this morning about his options. He would like to proceed with surgical therapy. We discussed with Dr. Soares and have a plan for infusion therapy for the von Willebrand's. We will put this into action. We will take him to the operating room in the afternoon for laparoscopic appendectomy. Subjective feeling good, no pain no fevers or chills no n,v having loose stools and abdominal cramping and gas pains are improved Physical Exam Constitutional: WD/WN, vitals as above no acute distress and not ill appearing Respiratory: normal respiratory effort; no respiratory distress Gastrointestinal (Abdomen): Inspection/Auscultation: abdomen normal to inspection and + hypoactive bowel sounds; abdomen not distended and + abnormal bowel sounds Percussion/Palpation: abdomen soft; abdomen nontender, no guarding and abdomen not rigid Skin: no rashes, warm and dry Psychiatric: A+Ox3, euthymic affect Results & Data Vital Signs (Past 12 Hours) Vital Signs Temp Pulse Resp BP Pulse Ox O2 Del Method 01/22/23 07:37 36.9 C 68 16 139/88 99 Room Air Laboratory Results 01/22/23 01/22/23 01/22/23 Range/Units 07:57 07:57 01:10 WBC 6.24 (4.8-10.8) K/ul RBC 5.07 (4.70-6.10) M/uL Hgb 15.7 (14.0-18.0) g/dl Hct 44.8 (42.0-52.0) % MCV 88.4 (80.0-100.0) fL MCH 31.0 (25.0-34.0) pg MCHC 35.0 (32.0-36.0) g/dL RDW Std Deviation 39.4 (36.4-46.3) fL RDW Coeff of Erickson 12.4 (11.5-14.5) % Plt Count 190 (130-400) K/uL MPV 11.2 (9.4-12.4) fL Immature Gran % (Auto) 0.3 % Neut % (Auto) 69.6 % Lymph % (Auto) 18.9 % [place] % (Auto) 8.8 % Eos % (Auto) 1.9 % Baso % (Auto) 0.5 % Neut # (Auto) 4.34 (1.40-6.50) K/uL Lymph # (Auto) 1.18 L (1.2-3.4) K/uL [place] # (Auto) 0.55 (0.11-0.59) K/uL Eos # (Auto) 0.12 (0-0.50) K/uL Baso # (Auto) 0.03 (0-0.2) K/uL Immature Gran # (Auto) 0.02 (0.01-0.20) K/uL PT (9.0-12.0) Seconds INR (0.9-1.1) Sodium 139 (136-145) mmol/L Potassium 3.6 (3.5-5.1) mmol/L Chloride 102 (98-107) mmol/L Carbon Dioxide 30 (21-32) mmol/L Anion Gap 7 (3-11) BUN 13 (6-23) mg/dl Creatinine 1.26 (0.6-1.4) mg/dl Est Cr Clr Drug Dosing 81.3 ml/min Est GFR ( Amer) 81.0 ml/min Est GFR (Non-Af Amer) 69.9 ml/min BUN/Creatinine Ratio 10.3 (10-20) Glucose 103 H (70-99(Fasting)) mg/dl Calcium 9.3 (8.6-10.3) mg/dl Total Bilirubin (0.2-1.0) mg/dl AST (13-39) U/L ALT (7-52) U/L Alkaline Phosphatase (34-104) U/L Total Protein (6.0-8.3) gm/dl Albumin (3.4-5.0) gm/dl Globulin (2.5-4.0) gm/dl Albumin/Globulin Ratio (0.9-2) Urine Color Dark Yellow Urine Appearance Clear (Clear) Urine pH 7.0 (4.5-7.5) Ur Specific [place] > 1.045 H (1.000-1.030) Urine Protein Trace H (Negative) Urine Glucose (UA) Negative (Negative) Urine Ketones Trace H (Negative) Urine Blood Negative (Negative) Urine Nitrite Negative (Negative) Urine Bilirubin Negative (Negative) Urine Urobilinogen Negative (Negative) Ur Leukocyte Esterase Negative (Negative) Urine WBC (Auto) 0 (0-5) /hpf Urine RBC (Auto) 0-4 (0-4) /hpf U Hyaline Cast (Auto) 0 (0-5) /lpf U Epithel Cells (Auto) 0-5 (0-5) /lpf Urine Bacteria (Auto) Negative (Negative) SARS-CoV-2, RNA, NAAT (NEGATIVE) 01/21/23 01/21/23 01/21/23 Range/Units 15:55 15:50 15:50 WBC (4.8-10.8) K/ul RBC (4.70-6.10) M/uL Hgb (14.0-18.0) g/dl Hct (42.0-52.0) % MCV (80.0-100.0) fL MCH (25.0-34.0) pg MCHC (32.0-36.0) g/dL RDW Std Deviation (36.4-46.3) fL RDW Coeff of Erickson (11.5-14.5) % Plt Count (130-400) K/uL MPV (9.4-12.4) fL Immature Gran % (Auto) % Neut % (Auto) % Lymph % (Auto) % [place] % (Auto) % Eos % (Auto) % Baso % (Auto) % Neut # (Auto) (1.40-6.50) K/uL Lymph # (Auto) (1.2-3.4) K/uL [place] # (Auto) (0.11-0.59) K/uL Eos # (Auto) (0-0.50) K/uL Baso # (Auto) (0-0.2) K/uL Immature Gran # (Auto) (0.01-0.20) K/uL PT 11.2 (9.0-12.0) Seconds INR 1.0 (0.9-1.1) Sodium 136 (136-145) mmol/L Potassium 3.8 (3.5-5.1) mmol/L Chloride 102 (98-107) mmol/L Carbon Dioxide 25 (21-32) mmol/L Anion Gap 9 (3-11) BUN 11 (6-23) mg/dl Creatinine 1.02 (0.6-1.4) mg/dl Est Cr Clr Drug Dosing 100.5 ml/min Est GFR ( Amer) 104.6 ml/min Est GFR (Non-Af Amer) 90.2 ml/min BUN/Creatinine Ratio 10.8 (10-20) Glucose 121 H (70-99(Fasting)) mg/dl Calcium 10.2 (8.6-10.3) mg/dl Total Bilirubin 0.8 (0.2-1.0) mg/dl AST 24 (13-39) U/L ALT 42 (7-52) U/L Alkaline Phosphatase 58 (34-104) U/L Total Protein 8.1 (6.0-8.3) gm/dl Albumin 4.8 (3.4-5.0) gm/dl Globulin 3.3 (2.5-4.0) gm/dl Albumin/Globulin Ratio 1.5 (0.9-2) Urine Color Urine Appearance (Clear) Urine pH (4.5-7.5) Ur Specific [place] (1.000-1.030) Urine Protein (Negative) Urine Glucose (UA) (Negative) Urine Ketones (Negative) Urine Blood (Negative) Urine Nitrite (Negative) Urine Bilirubin (Negative) Urine Urobilinogen (Negative) Ur Leukocyte Esterase (Negative) Urine WBC (Auto) (0-5) /hpf Urine RBC (Auto) (0-4) /hpf U Hyaline Cast (Auto) (0-5) /lpf U Epithel Cells (Auto) (0-5) /lpf Urine Bacteria (Auto) (Negative) SARS-CoV-2, RNA, NAAT NEGATIVE (NEGATIVE) 01/21/23 Range/Units 15:50 WBC 5.40 (4.8-10.8) K/ul RBC 5.32 (4.70-6.10) M/uL Hgb 16.5 (14.0-18.0) g/dl Hct 45.6 (42.0-52.0) % MCV 85.7 (80.0-100.0) fL MCH 31.0 (25.0-34.0) pg MCHC 36.2 H (32.0-36.0) g/dL RDW Std Deviation 37.8 (36.4-46.3) fL RDW Coeff of Erickson 12.1 (11.5-14.5) % Plt Count 210 (130-400) K/uL MPV 10.9 (9.4-12.4) fL Immature Gran % (Auto) 0.4 % Neut % (Auto) 72.8 % Lymph % (Auto) 19.3 % [place] % (Auto) 6.5 % Eos % (Auto) 0.6 % Baso % (Auto) 0.4 % Neut # (Auto) 3.94 (1.40-6.50) K/uL Lymph # (Auto) 1.04 L (1.2-3.4) K/uL [place] # (Auto) 0.35 (0.11-0.59) K/uL Eos # (Auto) 0.03 (0-0.50) K/uL Baso # (Auto) 0.02 (0-0.2) K/uL Immature Gran # (Auto) 0.02 (0.01-0.20) K/uL PT (9.0-12.0) Seconds INR (0.9-1.1) Sodium (136-145) mmol/L Potassium (3.5-5.1) mmol/L Chloride (98-107) mmol/L Carbon Dioxide (21-32) mmol/L Anion Gap (3-11) BUN (6-23) mg/dl Creatinine (0.6-1.4) mg/dl Est Cr Clr Drug Dosing ml/min Est GFR ( Amer) ml/min Est GFR (Non-Af Amer) ml/min BUN/Creatinine Ratio (10-20) Glucose (70-99(Fasting)) mg/dl Calcium (8.6-10.3) mg/dl Total Bilirubin (0.2-1.0) mg/dl AST (13-39) U/L ALT (7-52) U/L Alkaline Phosphatase (34-104) U/L Total Protein (6.0-8.3) gm/dl Albumin (3.4-5.0) gm/dl Globulin (2.5-4.0) gm/dl Albumin/Globulin Ratio (0.9-2) Urine Color Urine Appearance (Clear) Urine pH (4.5-7.5) Ur Specific [place] (1.000-1.030) Urine Protein (Negative) Urine Glucose (UA) (Negative) Urine Ketones (Negative) Urine Blood (Negative) Urine Nitrite (Negative) Urine Bilirubin (Negative) Urine Urobilinogen (Negative) Ur Leukocyte Esterase (Negative) Urine WBC (Auto) (0-5) /hpf Urine RBC (Auto) (0-4) /hpf U Hyaline Cast (Auto) (0-5) /lpf U Epithel Cells (Auto) (0-5) /lpf Urine Bacteria (Auto) (Negative) SARS-CoV-2, RNA, NAAT (NEGATIVE) (1) Acute appendicitis Acute appendicitis type: unspecified acute appendicitis type Qualified Code(s): K35.80 - Unspecified acute appendicitis
[2023-01-22 13:02] LABS: Partial Thromboplastin Time 28.2 Seconds (21.0-31.0)
[2023-01-22] MEDS ORDERED: BUPIVACAINE/EPINEPHRINE 0.5% MPF 1:200,000 30 ML VIAL ONE (14:40)
[2023-01-22] MEDS ORDERED: ONDANSETRON INJ 2 MG/ML 2 ML VIAL IV PRN (14:41)
[2023-01-22] MEDS ORDERED: ATROPINE SULFATE 0.1 MG/ML 10ML SYR IV PRN (14:41)
[2023-01-22] MEDS ORDERED: ePHEDrine sulfate 50 MG/ML AMP IV PRN (14:41)
[2023-01-22] MEDS ORDERED: SUGAMMADEX SODIUM 200 MG/2 ML VIAL IV ONE (16:08)
[2023-01-22] MEDS ORDERED: LABETALOL HCL IV 5 MG/ML 20ML IV ONE (16:25)
--- NOTE | 2023-01-22 16:37 | Post Operative Brief Note ---
Immediate Post Op Note v1 Date of Surgery January 22, 2023 Pre & Post Diagnosis Operation Date: 01/22/23 08:35 Pre-Op Diagnosis: ACUTE APPENDICITIS Post-Op Diagnosis: ACUTE APPENDICITIS I identified the patient and participated in the time-out.: Yes Procedure Operation Date: 01/22/23 08:35 Actual Procedures p Laparoscopic Appendectomy(Not Applicable) - Andres Dominguez MD Surgeon Andres Dominguez MD Medical Record Clerk CANDIS Howard assisted with tissue retraction, camera op, closure Estimated Blood Loss 10 Findings Consistent with Post-Op Diagnosis
--- NOTE | 2023-01-22 16:40 | Operative Report ---
Post Operative Report Pre & Post Diagnosis Operation Date: 01/22/23 08:35 Pre-Op Diagnosis: ACUTE APPENDICITIS Post-Op Diagnosis: ACUTE APPENDICITIS I identified the patient and participated in the time-out.: Yes Procedure Operation Date: 01/22/23 08:35 Actual Procedures p Laparoscopic Appendectomy(Not Applicable) - Andres Dominguez MD Surgeon Andres Dominguez MD Stakes Player CANDIS Howard assisted with tissue retraction, camera op, closure Estimated Blood Loss 10 Findings Consistent with Post-Op Diagnosis Acute appendicitis Specimens Appendix Drains None Anesthesia Type General Complications No immediate complications Description of Procedure The patient was taken to the operating room, and placed supine on the operating table. A timeout was performed, perioperative antibiotics were administered, SCD boots were placed. After adequate anesthesia and analgesia was obtained, the abdomen was prepped and draped in the normal sterile fashion. A 1 cm incision was made in the supraumbilical region and carried down to the level of the fascia. A trach hook was used to grasp the fascia and elevated and a varies needle was used to enter the abdominal cavity. The abdomen was i nsufflated to a pressure of 15 mmHg, and a 5 mm trocar was placed in this location. A 5 mm 30 degree laparoscope was placed into the abdominal cavity, and the abdomen was surveyed. The patient was placed in Trendelenburg and slightly to the left. One 5 mm trocar was placed in the right upper quadrant, and one 12 mm trocar was placed in the left lower quadrant under direct visualization. The right colon was identified and traced down to the cecum. The appendix was identified and elevated anteriorly and medially. It was significantly retrocecal. The terminal ileum was adhesed to the pelvic sidewall in front of the appendix. This was taken down with scissor dissection. The appendix was exposed. A window was created at the base of the appendix with a [place] dissector. The Endo THOMPSON stapler was used to transect the appendix at its base through noninflamed tissue, and subsequently the mesoappendix. The appendix was placed in an Endo Catch bag, and removed via the left lower quadrant port site. Attention was turned to hemostasis. There was a small bleeder at the end of the mesoappendiceal staple line posterior to the colon. To facilitate visualization of this area, a fourth 5 mm port was placed in the suprapubic region under direct visualization. A clip concrete technician was used to place a clip on the area of the staple line there was oozing. This controlled the bleeding. The abdomen was copiously irrigated and suctioned free, and again hemostasis was found to be excellent. All trochars removed under direct visualization. The abdomen was desufflated. The fascia in the 12 mm port site was closed with a 0 Vicryl suture. The skin was closed with a running 4-0 Monocryl subcuticular stitch. Dermabond was applied. The patient tolerated the procedure without complication, and was transferred in stable condition to the PACU. All instrument, needle, and sponge counts were correct at the end of the case. My assistant controller was necessary throughout the procedure for tissue retraction, possible camera operation, and closure of the wounds. I understand that section 1842(b)(7)(D) of the Social Security act generally prohibits Medicare physician fee schedule payment for the services of assistants at surgery in teaching hospitals when qualified residents are available to furnish such services. I certify that the services for which payment is claimed were medically necessary and that no qualified resident was available to perform the services. I further understand that these services are subject to postpayment review by the Medicare carrier. I attest to the content of the Intraoperative Record and any orders documented therein. Any exceptions are noted below.
[2023-01-22] MEDS: fentaNYL citrate PF 100 MCG/2 ML VIAL IV PRN ×6 (17:01→17:30)
--- NOTE | 2023-01-22 17:36 | Anesthesiology Progress Note ---
Date of Service January 22, 2023 Anesthesia Post Procedure Vital Signs Vital Signs: Temp Pulse Pulse Pulse Resp BP BP 01/22/23 17:05 87 17 156/98 H 01/22/23 16:58 36 C L 94 H 20 159/92 H 01/22/23 14:30 36.4 C L 74 18 145/81 H 01/22/23 07:37 36.9 C 68 16 139/88 01/21/23 20:46 36.7 C 62 16 134/87 01/21/23 20:30 68 23 136/87 01/21/23 20:00 52 L 16 137/85 01/21/23 19:30 57 L 20 144/86 H 01/21/23 19:00 51 L 19 130/87 01/21/23 18:46 59 L 19 125/85 01/21/23 18:40 58 L 27 H 01/21/23 18:30 51 L 17 01/21/23 18:20 51 L 20 01/21/23 18:10 55 L 19 01/21/23 18:00 58 L 20 01/21/23 17:50 60 17 01/21/23 17:40 62 17 Pulse Ox O2 Del Method O2 Flow Rate 01/22/23 17:05 97 Oxymask 4 01/22/23 16:58 97 Oxymask 6 01/22/23 14:30 98 Room Air 01/22/23 07:37 99 Room Air 01/21/23 20:46 100 Room Air 01/21/23 20:30 01/21/23 20:00 100 01/21/23 19:30 99 01/21/23 19:00 01/21/23 18:46 01/21/23 18:40 01/21/23 18:30 01/21/23 18:20 01/21/23 18:10 01/21/23 18:00 01/21/23 17:50 01/21/23 17:40 Pain Intensity Abdomen: Pain Intensity: 5 Transfer of Care Handoff Completed per policy Notes Mental Status: alert / awake / arousable Patient Amnestic to Procedure: Yes Nausea / Vomiting: adequately controlled Pain: adequately controlled Airway Patency, RR, SpO2: stable & adequate BP & HR: stable & adequate Hydration State: stable & adequate Anesthetic Complications: no major complications apparent
[2023-01-22] MEDS: LACTATED RINGER'S 1,000 ML IV SCH (18:16)
[2023-01-22 22:02] LABS: Partial Thromboplastin Time 27.7 Seconds (21.0-31.0)
[2023-01-22] MEDS ORDERED: [UNRECOGNIZED DRUG - MIXTURE] IV SCH (23:30)
[2023-01-22] MEDS: oxyCODONE/ACETAMINOPHEN 5mg/325mg TAB PO PRN (23:53)
[2023-01-23] MEDS: PIPERACILLIN/TAZOBACTAM 4.5 GM in DEXTROSE 5% 100 ML IV SCH ×2 (02:35→10:09)
[2023-01-23] MEDS: LACTATED RINGER'S 1,000 ML IV SCH ×2 (06:21→17:16)
[2023-01-23] MEDS: oxyCODONE/ACETAMINOPHEN 5mg/325mg TAB PO PRN ×3 (06:34→21:57)
[2023-01-23] MEDS: PANTOprazole 40 MG TAB PO SCH (08:59)
[2023-01-23] MEDS: LORATADINE 10 MG TAB PO SCH (08:59)
[2023-01-23 09:23] LABS: Basophils # (auto) 0.02 K/uL (0-0.2); Basophils % (auto) 0.3 %; Eosinophils # (auto) 0.05 K/uL (0-0.50); Eosinophils % (auto) 0.7 %; Hematocrit (blood only) 42.4 % (42.0-52.0); Hemoglobin 15.3 g/dl (14.0-18.0); Immature Granulocytes # (auto) 0.03 K/uL (0.01-0.20); Immature Granulocytes % (auto) 0.4 %; Lymphocytes # (auto) 1.21 K/uL (1.2-3.4); Lymphocytes % (auto) 16.5 %; Mean Corpuscular Hemoglobin 31.6 pg (25.0-34.0); Mean Corpuscular Hgb Conc 36.1 g/dL (32.0-36.0); Mean Corpuscular Volume 87.6 fL (80.0-100.0); Mean Platelet Volume 10.8 fL (9.4-12.4); Monocytes # (auto) 0.53 K/uL (0.11-0.59); Monocytes % (auto) 7.2 %; Neutrophils # (auto) 5.51 K/uL (1.40-6.50); Neutrophils % (auto) 74.9 %; Platelet Count 198 K/uL (130-400); RDW Coefficient of Variation 12.1 % (11.5-14.5); RDW Standard Deviation 38.5 fL (36.4-46.3); Red Blood Count 4.84 M/uL (4.70-6.10); White Blood Count 7.35 K/ul (4.8-10.8)
--- NOTE | 2023-01-23 11:06 | Surgery Progress Note ---
Date of Service January 23, 2023 Assessment & Plan (1) Acute appendicitis: (2) Von willebrand disease, type 1: Plan POD # 1 s/p lap appy avss postop pain controlled tolerating diet PTT has been normal Plan: doing well from surgical standpoint will consult case management to help with discharge planning with Humate-P transfusions Continue reg diet Humate-P transfusion scheduled for 11:[address] Dominguez has seen and examined pt, agrees with above. Admission and Anticipated Discharge Date Admission Date: January 21, 2023 Subjective feeling well this morning a lot of gas pains but walking helps alleviate passing gas tolerating regular diet no n,v no fevers, chills no chest pain or sob Physical Exam Constitutional: WD/WN, vitals as above no acute distress and not ill appearing Gastrointestinal (Abdomen): Inspection/Auscultation: abdomen normal to inspection and + abdominal surgical incision (clean/dry/intact with dermabond); abdomen not distended and + abnormal bowel sounds Percussion/Palpation: + abdomen tender (mild at incision sites) and abdomen soft; no guarding and abdomen not rigid Psychiatric: A+Ox3, euthymic affect Results & Data Vital Signs (Past 12 Hours) Vital Signs Temp Pulse Resp BP Pulse Ox O2 Del Method 01/23/23 07:32 36.6 C 63 16 126/79 99 Room Air 01/23/23 04:08 36.8 C 71 18 121/70 98 Room Air 01/22/23 23:35 37 C 65 18 132/80 95 Room Air Laboratory Results 01/23/23 01/23/23 01/23/23 Range/Units 09:01 09:01 09:01 WBC 7.35 (4.8-10.8) K/ul RBC 4.84 (4.70-6.10) M/uL Hgb 15.3 (14.0-18.0) g/dl Hct 42.4 (42.0-52.0) % MCV 87.6 (80.0-100.0) fL MCH 31.6 (25.0-34.0) pg MCHC 36.1 H (32.0-36.0) g/dL RDW Std Deviation 38.5 (36.4-46.3) fL RDW Coeff of Erickson 12.1 (11.5-14.5) % Plt Count 198 (130-400) K/uL MPV 10.8 (9.4-12.4) fL Immature Gran % (Auto) 0.4 % Neut % (Auto) 74.9 % Lymph % (Auto) 16.5 % [place] % (Auto) 7.2 % Eos % (Auto) 0.7 % Baso % (Auto) 0.3 % Neut # (Auto) 5.51 (1.40-6.50) K/uL Lymph # (Auto) 1.21 (1.2-3.4) K/uL [place] # (Auto) 0.53 (0.11-0.59) K/uL Eos # (Auto) 0.05 (0-0.50) K/uL Baso # (Auto) 0.02 (0-0.2) K/uL Immature Gran # (Auto) 0.03 (0.01-0.20) K/uL APTT (21.0-31.0) Seconds PTT Ratio Factor VIII Activity Pending von Willebrand Antigen Ref Lab Test Result Pending 01/23/23 01/23/23 01/23/23 Range/Units 00:20 00:20 00:20 WBC (4.8-10.8) K/ul RBC (4.70-6.10) M/uL Hgb (14.0-18.0) g/dl Hct (42.0-52.0) % MCV (80.0-100.0) fL MCH (25.0-34.0) pg MCHC (32.0-36.0) g/dL RDW Std Deviation (36.4-46.3) fL RDW Coeff of Erickson (11.5-14.5) % Plt Count (130-400) K/uL MPV (9.4-12.4) fL Immature Gran % (Auto) % Neut % (Auto) % Lymph % (Auto) % [place] % (Auto) % Eos % (Auto) % Baso % (Auto) % Neut # (Auto) (1.40-6.50) K/uL Lymph # (Auto) (1.2-3.4) K/uL [place] # (Auto) (0.11-0.59) K/uL Eos # (Auto) (0-0.50) K/uL Baso # (Auto) (0-0.2) K/uL Immature Gran # (Auto) (0.01-0.20) K/uL APTT (21.0-31.0) Seconds PTT Ratio Factor VIII Activity Pending von Willebrand Antigen Cancelled Ref Lab Test Result Pending 01/22/23 01/22/23 01/22/23 Range/Units 21:18 12:11 12:11 WBC (4.8-10.8) K/ul RBC (4.70-6.10) M/uL Hgb (14.0-18.0) g/dl Hct (42.0-52.0) % MCV (80.0-100.0) fL MCH (25.0-34.0) pg MCHC (32.0-36.0) g/dL RDW Std Deviation (36.4-46.3) fL RDW Coeff of Erickson (11.5-14.5) % Plt Count (130-400) K/uL MPV (9.4-12.4) fL Immature Gran % (Auto) % Neut % (Auto) % Lymph % (Auto) % [place] % (Auto) % Eos % (Auto) % Baso % (Auto) % Neut # (Auto) (1.40-6.50) K/uL Lymph # (Auto) (1.2-3.4) K/uL [place] # (Auto) (0.11-0.59) K/uL Eos # (Auto) (0-0.50) K/uL Baso # (Auto) (0-0.2) K/uL Immature Gran # (Auto) (0.01-0.20) K/uL APTT 27.7 (21.0-31.0) Seconds PTT Ratio 1.0 Factor VIII Activity von Willebrand Antigen Cancelled Ref Lab Test Result Pending 01/22/23 01/22/23 Range/Units 12:11 12:11 WBC (4.8-10.8) K/ul RBC (4.70-6.10) M/uL Hgb (14.0-18.0) g/dl Hct (42.0-52.0) % MCV (80.0-100.0) fL MCH (25.0-34.0) pg MCHC (32.0-36.0) g/dL RDW Std Deviation (36.4-46.3) fL RDW Coeff of Erickson (11.5-14.5) % Plt Count (130-400) K/uL MPV (9.4-12.4) fL Immature Gran % (Auto) % Neut % (Auto) % Lymph % (Auto) % [place] % (Auto) % Eos % (Auto) % Baso % (Auto) % Neut # (Auto) (1.40-6.50) K/uL Lymph # (Auto) (1.2-3.4) K/uL [place] # (Auto) (0.11-0.59) K/uL Eos # (Auto) (0-0.50) K/uL Baso # (Auto) (0-0.2) K/uL Immature Gran # (Auto) (0.01-0.20) K/uL APTT 28.2 (21.0-31.0) Seconds PTT Ratio 1.0 Factor VIII Activity Pending von Willebrand Antigen Ref Lab Test Result (1) Acute appendicitis Acute appendicitis type: unspecified acute appendicitis type Qualified Code(s): K35.80 - Unspecified acute appendicitis
[2023-01-23] MEDS ORDERED: [UNRECOGNIZED DRUG - MIXTURE] IV SCH (11:30)
--- NOTE | 2023-01-24 06:10 | Surgery Progress Note ---
Date of Service January 24, 2023 Assessment & Plan (1) Acute appendicitis: Plan: Status post laparoscopic appendectomy on 01/22/2023 (postop day #2) Continue analgesics Continue antiemetics Continue diet as tolerated Continue mobilization as able Patient is receiving an infusion related to his von Willebrand's disease which is scheduled for later today. He can be discharged barring any incidents related to this infusion. Patient will follow-up with Dr. Dominguez as an outpatient As above. Feeling great. Tolerating diet. Would like to go home. Appreciate Dr. Villalpando's help. Will discharge today after his infusion. He is following up with Dr. Villalpando Thursday. Discharge instructions reviewed. Admission and Anticipated Discharge Date Admission Date: January 21, 2023 Subjective Patient is resting comfortably in bed. He denies any issues overnight. He is passing flatus but has not had a bowel movement since surgery. He is tolerating solid food without worsening abdominal pain. He also denies nausea or vomiting. Physical Exam Gastrointestinal (Abdomen): Surgical incisions are clean, dry, and intact without signs of infection. Abdomen is soft, nonrigid, nondistended. Bowel sounds are present. Patient has appropriate tenderness near surgical incisions with palpation. Results & Data Vital Signs (Past 12 Hours) Vital Signs Temp Pulse Resp BP Pulse Ox O2 Del Method 01/23/23 21:16 36.9 C 62 18 126/79 100 Room Air PG Care Time/CCT Total # of Minutes Spent Total Time Spent with Patient: Total time spent is greater than 50% in coordination of care (as documented) at patient's floor/unit and/or counseling patient: Coding Level of Care Code 88634 Post Operative Follow-Up Diagnoses Acute appendicitis K35.80 Acute appendicitis type: unspecified acute appendicitis type (1) Acute appendicitis Acute appendicitis type: unspecified acute appendicitis type Qualified Code(s): K35.80 - Unspecified acute appendicitis
[2023-01-24] MEDS: PANTOprazole 40 MG TAB PO SCH (08:03)
[2023-01-24] MEDS: LORATADINE 10 MG TAB PO SCH (08:03)
[2023-01-24] MEDS: oxyCODONE/ACETAMINOPHEN 5mg/325mg TAB PO PRN (08:03)
--- NOTE | 2023-01-24 08:15 | Hospitalist Progress Note ---
Date of Service January 23, 2023 Assessment & Plan (1) Von willebrand disease, type 1: Plan: Patient has done well with his laparoscopic appendectomy. Original discussion and recommendations were based on standard "major surgery" approach of maintaining von Willebrand's factor supplementation for 7 days following surgical procedure based on considering any intra-abdominal surgery "major" by classic definition. Rhina and Luis "Perioperative management of patients with von Willebrand disease" Hematology Am Soc Hematol Educ Program. https://www.ncbi.nlm.nih.gov/pmc/articles/DXA1311456/# 2019 Jul 29 2019(1): 952068. doi:10.1182/hematology.[id number] https://doi.org/[email or web address].[email or web address] indicate that laparoscopic procedures might be considered "minor" with some offers authors limiting supplementation to just 2 to 5 days postoperatively Patient is doing quite well and has some restlessness wishing to get home. Once daily factor infusion is probably sufficient (we have some difficulties with tur naround time for specific von Willebrand's factor assessments but certainly had achieved good targets in the immediate postoperative period and he is showing no signs of bleeding) but we are not able to arrange that on outpatient basis over the weekend. While we had avoided sole reliance on DDAVP for the perioperative management b/o the uncertainty of specific sustained levels as well as electrol yte balance issues immediately postoperatively, he does have a well-established and excellent response to that. I have offered that it would not be considered "standard" therapy but given his strong desire to not have to stay in the hospital through the weekend I did indicate that we could alternatively give him the standard intravenous infusion on Thursday but allow him to get his "dose" of von Willebrand's factor on Thursday by using the DDAVP nasal spray. Though this departs from standard recommendations, it is at a time point beyond the minimum of 2 days of postoperative infusion listed amongst the references by Kanu at a time when he is much less likely to develop secondary bleeding. While I would prefer to continue to a total of 4-5 days of postoperative supplementation to be conservatively protective against postoperative bleeding, using DDAVP on the third postoperative day seems a reasonable even if not standard alternative that allows him to be home rather than remaining in the hospital and extra 24 hours for just 1 additional infusion. I have repetitively emphasized any unusual bruising or bleeding or new abdominal symptoms should prompt return to the [facility] department for aggressive review and reinstitution of intravenous VWF We are able to resume intravenous VWF as of Thursday in our MTU and we will plan to give at least 1 final dose there then reassess as to whether we need to proceed on today 5 based on his clinical status Plan 1 additional dose of Humate-P to be given Thursday morning and if otherwise stable patient can be discharged. He has been admonished to immediately return to the hospital for any signs of new abdominal signs or symptoms or other unusual bruising or bleeding elsewhere. If he remains stable he can use his nasal DDAVP on Thursday morning and we will arrange for Humate-P infusion on Thursday in the MTU and at that time reassess his status as to the need for a final infusion on Thursday Admission and Anticipated Discharge Date Admission Date: January 21, 2023 Subjective Feels quite well, restless and anxious to get home. Moving about without limitation Physical Exam Physical Exam: Vital signs stable, minimal tenderness in the abdomen and the rest of his examination was unremarkable Results & Data Results & Data Vital Signs (Past 12 Hours) Vital Signs Temp Pulse Resp BP Pulse Ox O2 Del Method 01/24/23 07:28 36.9 C 69 16 120/70 98 Room Air 01/23/23 21:16 36.9 C 62 18 126/79 100 Room Air PG Care Time/CCT Total # of Minutes Spent Total Time Spent with Patient: Total time spent is greater than 50% in coordination of care (as documented) at patient's floor/unit and/or counseling patient: Coding Level of Care Code 18626 SUB INP/OBS CARE 09/17MIN Diagnoses Von willebrand disease, type 1 D68.01
[2023-01-24] MEDS ORDERED: [UNRECOGNIZED DRUG - MIXTURE] IV SCH (11:30)
[2023-01-24] MEDS ORDERED: FACTOR 8/HUMATE-P/ADVATE ONE (11:30)
== END 2023-01-24 12:47 | disposition home or self-care (01) ==
LOC: ED 15:20 → EDINP 15:20 → 3E 20:23